=== PATIENT | male | born 1940 | race Caucasian/White ===

== ENCOUNTER 2016-09-15 15:22 | Emergency (ER) | payer MEDICARE, MEDICAID ==
[~2016-09-15] VITALS: Ht 157.5 cm; Wt 104.0 kg
[~2016-09-15 15:22] MED LIST: ATOR80TA73; DICL50TA; GBPN100C PO; GLIM4TAB PO; GLYB5TAB6 PO; HYDR-3811 PO; LEVO125T PO; LOSA100T8; LVT.15T; METF500T4 PO; SITA100T PO; TAMS0.4C2; TRM50T PO
--- OUTSIDE RECORDS SUMMARY | 2016-09-15 15:27 | XMS REPORT | Continuity of Care Document ---
Author Author [facility] Organization [facility] Address Unknown Phone Unavailable Care Team Providers Care Voice Engineer Name Role Phone LYNETTEDEBRA SMITH MD PCP [phone] Insurance Providers Payer Name Policy Number Subscriber Name Relationship Medicare A And B [id number] Joe Galarza 20 Self / Same As Patient [place] Medicaid [id number] Joe Galarza Self / Same As Patient Chief Complaint and Reason for Visit Chief Complaint Injury Reason for Visit Shoulder injury Problems Medical Problems Problem Onset Date Status Shoulder injury Unknown Active Medications Medication Dose Route Sig Days/Qty Instructions Order Date Discontinued Date Status Gabapentin 200 Mg ORAL TWICE A DAY 07/26/14 Active Metformin Hcl 2 Tab ORAL TWICE A DAY 07/26/14 Active Levothyroxine Sodium 125 Mcg ORAL DAILY 07/26/14 Active Hydrocodone Bit/Acetaminophen 1 Tab ORAL Q 4-6 hrs prn 10 Qty 09/23/14 Active Social History No social history. Hospital Discharge Instructions No hospital discharge instructions. Plan of Care Discharge Date 09/23/14 2:04pm Disposition 01 HOME OR SELF-CARE Condition at Discharge Stable Instructions/Education Provided Shoulder Sprain (ED) Prescriptions See Medications Section Referrals DEBRA OJEDA MD Functional Status No functional status results. Allergies, Adverse Reactions, Alerts Allergen Type Severity Reaction Status Last Updated No Known Drug Allergies Active 07/26/14 Immunizations No immunization records. Vital Signs Acute Vital Signs Vital Response Date/Time Temperature (Fahrenheit) 98.1 Pulse 80 bpm Respirations 18 Height 5 ft 2 in Weight 228 lb Body Mass Index 41.0 kg/m^2 Results No known relevant diagnostic tests, laboratory data and/or discharge summary. Procedures No known history of procedures. Encounters Encounter Location Date/Time Departed Emergency Room [facility] 09/23/14 12:44pm Recent Diagnosis
[2016-09-15] MEDS ORDERED: SODIUM CHLORIDE FLUSH 3 ML SYR IV PRN (16:00)
[2016-09-15] MEDS ORDERED: SODIUM CHLORIDE 250 ML IV PRN (16:00)
[2016-09-15] MEDS ORDERED: SODIUM CHLORIDE FLUSH 10 ML SYR IV PRN (16:00)
[2016-09-15 16:22] LABS: BASOPHILS % (AUTO) 0 % (0-2); EOSINOPHILS # (AUTO) 0.2 10^3uL; EOSINOPHILS % (AUTO) 1 % (0-4); LYMPHOCYTES # (AUTO) 4.4 X10^3; MEAN CORPUSCULAR HGB CONC 34.2 g/dL (31.0-37.0); MEAN CORPUSCULAR VOLUME 88 FL (80-100); MEAN PLATELET VOLUME 11.9 FL (6.0-9.5); MONOCYTES % (AUTO) 8 % (3-11); NEUTROPHILS # (AUTO) 6.1 X10^3; NEUTROPHILS % (AUTO) 52 % (51-67); PLATELET COUNT 196 10^3uL (150-450); WHITE BLOOD COUNT 11.77 10^3uL (4.0-11.0)
[2016-09-15] MEDS: ONDANSETRON 2 MG/ML (Z0FRAN) 2 ML VIAL IV ONE ×2 (16:25→16:31)
[2016-09-15 16:35] LABS: ALBUMIN 4.3 g/dL (3.4-5.0); ALKALINE PHOSPHATASE 55 U/L (38-126); AMYLASE* 159 U/L (25-115); ANION GAP 17.4 MEQ/L (3-15); BUN/CREATININE RATIO 17 (10-20); CALCULATED IONIZED CALCIUM 3.8 mg/dL (3.8-4.6); CREATINE KINASE 102 U/L (55-170); LIPASE* 177 U/L (23-300); MAGNESIUM* 1.7 mg/dL (1.6-2.3); TOTAL PROTEIN 7.7 g/dL (6.4-8.5)
[2016-09-15 17:09] LABS: BILIRUBIN,URINE Negative (Negative); COLOR,URINE Yellow; GLUCOSE, URINE (UA) Negative (Negative); LEUKOCYTE ESTERASE ,URINE 1+ (Negative); PH,URINE 5.5 (5.0 - 8.0); UROBILINOGEN,URINE 0.2 mg/dL (0.2-1.0)
--- NOTE | 2016-09-15 17:09 | Diagnostic Imaging Report ---
INDICATION: Right upper quadrant pain. FINDINGS: There is no free air beneath the diaphragms. No bony destruction or rib fracture deformity. Heart upper limits of size. No infiltrate. IMPRESSION: No acute appearing abnormality. Dictated by: Dictated on workstation # [id number]
[2016-09-15] MEDS ORDERED: KETOROLAC 15 MG/ML (TORADOL) 1 ML VIAL IV ONE (17:25)
[2016-09-15] MEDS ORDERED: TRAM-25 PO (17:29)
[2016-09-15 17:37] LABS: CLARITY,URINE Slightly Cloudy
[2016-09-15 17:38] LABS: URINE CENTRIFUGED VOLUME 12 mL
[2016-09-15 17:39] LABS: RBC,URINE None Seen /HPF
[2016-09-15 17:46] VITALS: BP 133/79
[2016-09-28] MEDS ORDERED: OMG1KC PO (10:01)
[2016-09-28] MEDS ORDERED: MELO7.5T PO (10:01)
[2016-10-01] MEDS ORDERED: METF500T4 PO (09:01)
== END 2016-09-15 17:40 | disposition home or self-care (01) ==
LOC: EDUNIT# 15:22 → ED 15:23
DX: R07.89 Other chest pain (principal); E11.22 Type 2 diabetes mellitus with diabetic chronic kidney disease; Z79.84 Long term (current) use of oral hypoglycemic drugs; R82.99 Other abnormal findings in urine
CPT/HCPCS: 36415; 71101; 80053; 81003; 81015; 82150; 82550; 82553; 83690; 83735; 83880; 84484; 85025; 85610; 85730; 86140; 87088; 93005; 93010; 99284; 99285

== ENCOUNTER 2016-10-01 08:29 | Day surgery (SDC) | payer MEDICARE, MEDICAID ==
[~2016-10-01] VITALS: Ht 157.5 cm; Wt 104.1 kg
[~2016-10-01 08:29] MED LIST changes: +ACETAMINOPHEN 500 MG TAB (TYLENOL) PO PRN; -ATOR80TA73; +CHONDROITIN/HYALURONATE (DISCOVISC) 1 ML SYR IO ONE; -DICL50TA; -GBPN100C PO; -GLIM4TAB PO; -GLYB5TAB6 PO; -HYDR-3811 PO; -LEVO125T PO; -LOSA100T8; -LVT.15T; -METF500T4 PO; +PHENYLEPHRINE/KETOROLAC 4 ML VIAL IO ONE; -SITA100T PO; +SODIUM CHLORIDE FLUSH 3 ML SYR IV PRN; -TAMS0.4C2; +TETRACAINE 0.5% OPHTHALMIC SOLUTION 2 ML BTL ONE; -TRM50T PO; +diphenhydrAMINE 50 MG/ML INJ (BENADRYL) IV PRN
[2016-10-01 08:40] VITALS: BP 147/95
[2016-10-01] MEDS: LIDOCAINE 3.5% OPHTH GEL (AKTEN) 1 ML BTL OD SCH ×4 (08:50→09:22)
[2016-10-01] MEDS: CATARACT PRE-OP EYE DROPS 0.5ML SYRINGE OD SCH ×3 (09:02→09:22)
[2016-10-01] MEDS: HOME MEDICATION OD SCH ×3 (09:02→09:22)
[2016-10-01] MEDS ORDERED: MIDAZOLAM 2 MG/2 ML (VERSED) VIAL ONE (10:12)
[2016-10-01] MEDS ORDERED: CHONDROITIN/HYALURONATE (VISCOAT) 0.5 ML SYR IO ONE (10:22)
[2016-10-01] MEDS ORDERED: ACETYLCHOLINE CHLORIDE 20 MG/2 ML KIT IO ONE (10:26)
[2016-10-01 11:07] VITALS: BP 151/92
--- NOTE | 2016-10-01 11:16 | NUR ---
VIGAMOX GIVEN TO PATIENT'S FAMILY, RADHA. VIGAMOX PUT INTO BOX AND BACK INTO BAG.
== END 2016-10-01 11:35 | disposition home or self-care (01) ==
LOC: ASC 08:29
PROVIDERS: ATTEND Ophthalmology
PROC: 08RJ3JZ Replacement of Right Lens with Synthetic Substitute, Percutaneous Approach (ICD-10-PCS; principal; 2016-10-01)
DX: H26.9 Unspecified cataract (principal); H53.8 Other visual disturbances; E11.9 Type 2 diabetes mellitus without complications; E78.00 Pure hypercholesterolemia, unspecified; N40.0 Benign prostatic hyperplasia without lower urinary tract symptoms; Z87.891 Personal history of nicotine dependence
CPT/HCPCS: 66984; A9270; C9447; J2250; V2632